=== PATIENT | female | born 1960 | race African-American/Black ===

== ENCOUNTER 2017-03-22 08:53 | Inpatient (IN) | payer BC ==
[~2017-03-22] VITALS: Ht 157.5 cm; Wt 64.5 kg
[~2017-03-22 08:53] MED LIST: ASPIRIN325 MG PO; CRESTOR10 MG PO; GLIPIZIDE10 MG PO; GLUCOPHAGE500 MG; LANTUS INSULIN10 ML SC; LISINOPRIL2.5 MG PO; LOPRESSOR25 MG PO; PLAVIX75 MG PO; PRINIVIL10 MG PO; PROTONIX I40 MG/VIAL IV; PROTONIX40 MG PO
[2017-03-22 09:10] LABS: BASOPHILS 0.1 % (0-2); EOSINOPHILS 0.1 % (0-7); HEMATOCRIT 45.2 % (36.0-48.0); HEMOGLOBIN 14.9 g/dL (12-16); IMMATURE GRANULOCYTES 0.2 % (0-5); LYMPHOCYTES 7.7 % (15-50); MCH 28.2 pg (26.0-34.0); MCV 85.6 fL (80.0-100.0); MEAN PLATELET VOLUME 10.7 fL (7.4-10.4); MONOCYTES 2.6 % (2-11); NEUTROPHILS 89.3 % (40-80); PLATELET COUNT 200 10x3/uL (130-400); RBC 5.28 10x6/uL (4.00-5.40); RDW 13.2 % (11.5-14.5); WBC 12.5 10x3/uL (4.8-10.8)
[2017-03-22 09:20] LABS: APTT 21.3 SECONDS (22.8-39.4); INR 0.95 (0.85-1.17); PROTIME 12.5 SECONDS (11.6-15.0)
[2017-03-22 09:24] LABS: ALBUMIN 3.9 g/dL (3.4-5.0); ANION GAP 18.9 mmol/L (8-16); BILIRUBIN - TOTAL 0.41 mg/dL (0.2-1.3); CALCIUM 9.9 mg/dL (8.5-10.1); CARBON DIOXIDE 21.2 mmol/L (21.0-32.0); CREATININE - SERUM 1.3 mg/dL (0.6-1.3); POTASSIUM - SERUM 4.1 mmol/L (3.5-5.1); PROTEIN - SERUM 8.7 g/dL (6.4-8.2)
[2017-03-22 10:03] LABS: APPEARANCE CLEAR (CLEAR); BACTERIA FEW /hpf (NONE SEEN); BILIRUBIN NEGATIVE (NEGATIVE); COLOR STRAW (YELLOW); EPITHELIAL CELLS 0-5 /hpf (0-5); GLUCOSE 1000 mg/dL (NEGATIVE); KETONE SMALL mg/dL (NEGATIVE); LEUKOCYTE ESTERASE TRACE (NEGATIVE); NITRITE NEGATIVE (NEGATIVE); PROTEIN NEGATIVE (NEGATIVE); RED CELLS - URINE OCC /hpf (0-5); SPECIFIC GRAVITY 1.015 (1.005-1.020); UROBILINOGEN NORMAL (NORMAL); YEAST OCC /hpf (NONE SEEN)
--- NOTE | 2017-03-22 15:55 | NUR ---
PT ORDERED TO HAVE TELE. FLORAL ASSISTANT IS NOT GIVING OUT MONITORS UNLESS DX IS CHEST PAIN, THIS PT DX IS NOT CHEST PAIN. R/T MONITOR STATION BEING BROKEN
[2017-03-22 16:34] VITALS: BP 147/86; BMI 27.5
--- NOTE | 2017-03-22 16:45 | NUR ---
PT ADMITTED TO ROOM VIA STRETCHER FROM ER. PT VERY LETHARGIC, HAS BEEN IN ER SINCE 0800. FAMILY AT BEDSIDE. FSBS TREATED. VS ARE WNL. FLUIDS RUNNING TO R HAND PIV NO PROBLEMS. ORDERED PT DINNER TRAY. SCDS ARE ON AND PATENT. WILL CONT TO MONITOR
--- NOTE | 2017-03-22 17:20 | NUR ---
PT STILL LETHARGIC SLEEPPING FAMILY AT BEDSIDE
--- NOTE | 2017-03-22 17:37 | NUR ---
PT CO LEFT SHOULDER PAIN FROM RECENT FALL. PAGED DR PINEDA FOR MEDICATION.
[2017-03-22] MEDS ORDERED: PLAVIX75 MG PO (18:51)
[2017-03-22] MEDS ORDERED: GLIMEPIRIDE4 MG PO (18:51)
[2017-03-22] MEDS ORDERED: METOPROLOL TART50 MG PO (18:52)
[2017-03-22] MEDS ORDERED: CRESTOR40 MG PO (18:52)
[2017-03-22 20:00] VITALS: BP 154/92
--- NOTE | 2017-03-22 20:55 | NUR ---
HS MEDS GIVEN WITH FRESH ICE WATER. BS 280, COVERED PER S/S. RECLINER CHAIR TAKEN TO ROOM FOR PTS DAUGHTER TO STAY THE NIGHT.
[2017-03-22 23:00] VITALS: BP 139/91
--- NOTE | 2017-03-23 03:22 | NUR ---
UP WITH ASSIST TO BR, GAIT UNSTEADY.
--- NOTE | 2017-03-23 04:04 | NUR ---
RESTING WITH EYES CLOSED, RESPERATIONS EVEN, NO S/S DISTRESS NOTED.
[2017-03-23 05:11] VITALS: BP 122/85
[2017-03-23 06:01] LABS: BASOPHILS 0.2 % (0-2); EOSINOPHILS 0.4 % (0-7); HEMATOCRIT 38.4 % (36.0-48.0); HEMOGLOBIN 12.6 g/dL (12-16); IMMATURE GRANULOCYTES 0.1 % (0-5); MCH 27.8 pg (26.0-34.0); MCHC 32.8 g/dL (31.0-37.0); MCV 84.8 fL (80.0-100.0); MEAN PLATELET VOLUME 10.8 fL (7.4-10.4); MONOCYTES 7.9 % (2-11); NEUTROPHILS 67.4 % (40-80); PLATELET COUNT 201 10x3/uL (130-400); RBC 4.53 10x6/uL (4.00-5.40); RDW 13.7 % (11.5-14.5)
[2017-03-23 06:05] LABS: WBC 9.3 10x3/uL (4.8-10.8)
[2017-03-23 06:29] LABS: ANION GAP 13.1 mmol/L (8-16); CALCIUM 9.1 mg/dL (8.5-10.1); CARBON DIOXIDE 24.4 mmol/L (21.0-32.0); POTASSIUM - SERUM 3.5 mmol/L (3.5-5.1)
--- NOTE | 2017-03-23 06:57 | NUR ---
RECEIVED REPORT FROM [facility] SHIFT NURSE, LLOYD FUENTES. PT IN BED, SLEEPING AT THIS TIME. CALL LIGHT IN REACH, NAD NOTED, WILL CONTINUE TO MONITOR.
--- NOTE | 2017-03-23 07:44 | NUR ---
ADMINISTERED 650MG OF TYLENOL FOR PAIN LEVEL OF 8/10. PT IN BED, DENIES ANY OTHER NEEDS AT THIS TIME. CALL LIGHT IN REACH, NAD NOTED, WILL CONTINUE TO MONITOR.
--- NOTE | 2017-03-23 09:13 | NUR ---
ADMINISTERED MORNING MEDICATIONS, PT IN BED, DENIES ANY NEEDS AT THIS TIME. CALL LIGHT IN REACH, DAUGTHER AT BEDSIDE, NAD NOTED, WILL CONTINUE TO MONITOR.
[2017-03-23 10:48] VITALS: BP 130/87
--- NOTE | 2017-03-23 12:12 | NUR ---
BLOOD SUGAR OF 398, ADMINISTERED 16 UNITS OF HUMULIN PER SLIDING SCALE. PT DENIES ANY OTHER NEEDS AT THIS TIME. CALL LIGHT IN REACH, NAD NOTED, WILL CONTINUE TO MONITOR.
[2017-03-23 13:59] VITALS: BP 136/79
[2017-03-23 16:51] VITALS: BP 142/80
[2017-03-23 18:57] LABS: HEMOGLOBIN A1C 13.7 % (4.8-6.0)
[2017-03-23 19:00] LABS: CHOL - HDL RATIO 5.1 ratio (2.3-4.1); LDL-HDL RATIO 3.6 ratio (1.5-3.5)
[2017-03-23 20:00] VITALS: BP 158/92
--- NOTE | 2017-03-23 20:55 | NUR ---
HS MEDS GIVEN. FSBS 147. PT ALERT/TALKATIVE. ORIENTED TO PPPX 3. IVF NS @ 50 ML/HR INFUSING TO RIGHT HAND. PT HAS PAIN TO LEFT SHOULDER WHERE SHE HIT THE WALL WHEN SHE FELL AT HOME. CALL LIGHT IN REACH. CPOC.
[2017-03-24] VITALS (7 sets, daily range): BP systolic 137–173; BP diastolic 70–99
--- NOTE | 2017-03-24 07:15 | NUR ---
RECEIVED REPORT FROM ADMINISTRATIVE SUPPORT SPECIALIST NURSE, TONIO FUENTES. PT IN BED, DENIES ANY NEEDS AT THIS TIME. CALL LIGHT IN REACH, NAD NOTED, WILL CONTINUE TO MONITOR.
--- NOTE | 2017-03-24 09:17 | NUR ---
ADMINISTERED MORNING MEDICATIONS, PT IN BED, DENIES ANY NEEDS AT THIS TIME. CALL LIGHT IN REACH, NAD NOTED, WILL CONTINUE TO MONITOR.
--- NOTE | 2017-03-24 13:34 | NUR ---
ADMINISTERED 650MG OF TYLENOL FOR PAIN LEVEL OF 6/10. ALSO PROVIDED PT WITH A CUP OF ICE WATER. PT IN BED, DENIES ANY OTHER NEEDS AT THIS TIME. CALL LIGHT IN REACH, FAMILY AT BEDSIDE, NAD NOTED, WILL CONTINUE TO MONITOR.
--- NOTE | 2017-03-24 19:00 | NUR ---
INITIAL ROUNDS MADE. PT SITTING UP IN BED WITH FAMILY IN ROOM. PT DENIES NEEDS OR C/O AT THIS TIME. CALL LIGHT IN REACH. WILL CONT TO MONITOR.
--- NOTE | 2017-03-24 22:54 | NUR ---
RESTING WELL WITH EYES CLOSED, CONT TO MONITOR.
[2017-03-25 03:23] VITALS: BP 153/90
--- NOTE | 2017-03-25 07:51 | NUR ---
0745-AM ROUNDING DOWN WITH NO COMPLAINTS OR NEEDS PER PATIENT. PATIENT STATES THAT SHE IS HOPING TO BE DISCHARGED TODAY. RIGHT HAND SEEN WITH NS INFUSING AT 50 CC/HR. ON ROOM AIR. WILL MONITOR.
[2017-03-25 08:33] VITALS: BP 177/102
[2017-03-25 12:00] VITALS: BP 150/89
--- NOTE | 2017-03-25 14:32 | NUR ---
Nutrition Consult: Consult received for diabetic education. Pt reported that she has had DM for years but needed to be refreshed on diet education. She said that she usually eats 3 meals/day. Pt reported that she does eat a lot of sweets and drinks Pepsi. Reviewed CHO containing food groups with pt. Encouraged pt to eat 3 meals and 3 snacks per day. Encouraged pt to make healthier choices and limit sweets; also to d/c drinking sweetened beverages. Pt displayed good understanding. RD name and number provided to pt. Pt encouraged to contact RD with any questions/concerns. Thank you for the consult. RD will continue to monitor pt progress.
[2017-03-25 14:38] VITALS: Ht 157.5 cm; Wt 64.5 kg
[2017-03-25 16:00] VITALS: BP 157/89
--- NOTE | 2017-03-25 19:45 | NUR ---
RECIEVED SHIFT REPORT. PT IS LYING IN BED. ALERT AND ORIENTED AND ABLE TO VERBALIZE NEEDS. IV IS PATENT AND FLUIDS ARE RUNNING PER ORDER. SCD'S OFF AT THIS TIME. PT IS AMBULATORY BUT WAS INSTRUCTED TO CALL FOR ANY ASSISTANCE NEEDED. PT DENIES ANY PAIN AT THIS TIME. NO NEEDS ARE VERBALIZED AT THIS TIME. WILL CONTINUE TO MONITOR. SIDE RAILS ARE UP X 2. BED IS IN LOWEST POSITION. CALL LIGHT IS WITHIN REACH.
[2017-03-25 20:10] VITALS: BP 163/99
--- NOTE | 2017-03-25 22:01 | NUR ---
SHIFT ASSESSMENT COMPLETED. NIGHT MEDS GIVEN WITH NO PROBLEMS. PT RECIEVED NO INSULIN PER SLIDING SCALE FOR FSBS=87. NO NEEDS ARE VOICED. WILL MONITOR. SIDE RAILS X 2. BED LOW. CALL LIGHT IN REACH.
[2017-03-26 00:05] VITALS: BP 142/88
[2017-03-26 03:37] VITALS: BP 134/83
[2017-03-26 08:08] VITALS: BP 144/82
--- NOTE | 2017-03-26 08:26 | NUR ---
AM ROUNDS - PT APPEARS TO BE SLEEPING ON LEFT SIDE WITH BREATHS EQUAL AND NON LABORED. SCD ARE OFF. NS AT 50CC/HR IN RIGHT HAND. WILL CONTINUE TO MONITOR.
--- NOTE | 2017-03-26 11:12 | NUR ---
Patient Name: CK BECK Admission Status: ER Accout number: [id number] Admission Date: 03-22-2017 : 1960 Admission Diagnosis:TYPE 2 DIABETES MELLITUS WITH HYPOGLYCEMIA WITHOUT COMA Attending: EDILBERTO Current LOS: 4 Anticipated DC Date: 03-26-2017 Planned Disposition: Home Primary Insurance: [employer] [facility] Discharge Planning Comments: * Is the patient Alert and Oriented? Yes 0 * How many steps to enter\exit or inside your home? 4-5 0 * PCP DR. ANIBAL STEVENSON 0 * Pharmacy [facility] 0 * Preadmission Environment Home Alone 0 * ADLs Independent 0 * Equipment Glucometer 0 * Other Equipment NO MEDICAL EQUIPMENT PROVIDER 0 * List name and contact numbers for known caregivers / representatives who currently or will assist patient after discharge: SAVANNAH BARRAGAN, MOTHER, SHU BECK, DTR, 0 * Community resources currently utilized None 0 * Please name any agencies selected above. NONE 0 * Additional services required to return to the preadmission environment? No 0 * Can the patient safely return to the preadmission environment? Yes 0 * Has this patient been hospitalized within the prior 30 days at any hospital? No [address] PINEDA ON 03-25-17, NOTIFIED CM THAT PT IS NOT ABLE TO AFFORD HOME MEDICATIONS. CM CALLED PT'S INTEGRATION PROJECT MANAGER, PHIL HENNY, , DISCUSSED PT'S ISSUES. PT'S FORMULARY DOES NOT COVER LANTUS OR METFORMIN HCL, BUT DOES COVER THREE OTHER INSULINS AND METFORMIN EXTENDED RELEASE AND REGULAR METFORMIN. PT USES [facility]; INSURANCE [facility] AND PT COULD GET A THREE MONTH SUPPLY AT [facility] FOR WHAT PT IS PAYING FOR ONE MONTH AT [facility]. CM MET WITH PT IN ROOM ON 03-26-17, TO DISCUSS DISCHARGE PLANNING AND NEEDS. PT REPORTS LIVING AT HOME INDEPENDENTLY AND ALONE. PT HAS GLUCOMETER AND NO MEDICAL EQUIPMENT PROVIDER PREFERENCE. PT HAS NO OUTSIDE SERVICES ASSISTING IN THE HOME. CM DISCUSSED AVAILABILITY OF HOME HEALTH, REHAB SERVICES AND MEDICAL EQUIPMENT. PT DENIES DISCHARGE NEEDS, REPORTS HER DAUGHTER WILL PICK HER UP FOR DISCHARGE HOME. CM DISCUSSED PT'S HOME MEDICATION ISSUE. PT REPORTS SHE HAS HAD HER HOURS CUT AT [email or web address] TO 25 HOURS; SHE REPORTS BEING EMPLOYED THERE FOR 30 YEARS. PT HAS NOT EXPLORED ANY ASSISTANCE PROGRAMS AND HAS NOT DISCUSSED INABILITY TO AFFORD HER MEDICATIONS WITH HER DOCTOR OR INSURANCE COMPANY TO SEE IF THERE ARE OTHER DRUGS. CM INFORMED OF INSURANCE PROP [employer]ER INFORMATION, PROVIDED LIST OF WHAT SPECIFIC HOME MEDICATIONS ARE AND ARE NOT COVERED SO THAT PT CAN DISCUSS THIS WITH HER PRIMARY DOCTOR. CM PROVIDED INFORMATION TO TWO PRIVATE ASSISTANCE AGENCIES THAT PT CAN APPLY TO FOR MEDICATION ASSISTANCE. CM PROVIDED PT WITH INFORMATION TO [employer] ($10 PER MONTH) AND ENCOURAGED PT TO APPLY IF HER DOCTOR WANTS TO KEEP HER ON LANTUS. CM INFORMED PT SHE COULD BE SAVING MONEY BY TRANSFERRING HER PRESCRIPTIONS TO [facility] OR [employer], PROVIDED PT WITH [facility] $4 MEDICATION LISTING. PT THANKED CM FOR THE INFORMATION, REPORTS SHE IS AWARE THAT SHE NEEDS TO TAKE HER MEDICATIONS DR. STEVENSON HAS BEEN TELLING HER FOR YEARS AND PT HAS BEEN A DIABETIC FOR YEARS AND IS AWARE OF THE DANGERS OF UNCONTROLLED DIABETES. PT REPORTS SHE WILL HAVE HER DAUGHTER WHO HAS INTERNET ACCESS AND ABILITY TO ASSIST WITH APPLICATIONS FOR ASSISTANCE ON PT'S HOME MEDICATIONS. PT DENIES FURTHER DISCHARGE NEEDS. Regional Facilities Specialist: Abdi Meadows
[2017-03-26 11:39] VITALS: BP 124/81
[2017-03-26] MEDS ORDERED: LISINOPRIL10 MG PO (14:09)
[2017-03-26] MEDS ORDERED: CATAPRES0.1 MG PO (14:10)
--- NOTE | 2017-03-26 15:28 | NUR ---
Patient Name: CK BECK Encounter No: [id number] : 1960 Primary Insurance: [employer] [place] P[employer] Anticipated DC Date: 03-26-2017 Planned Disposition: Home DCP follow-up note: CM SPOKE TO PHIL INMAN, PT'S SALES REPRESENTATIVE METALS. PHIL HAS MET WITH PT IN ROOM, PROVIDED RESOURCE INFORMATION TO ENABLE PT TO GET A FREE REPLACEMENT GLUCOMETER WELL FREE TESTING STRIPS WITH THE COMMUNITY CASE MANAGEMENT PROGRAM THROUGH [employer]. PHIL ALSO DISCUSSED WITH PT CHANGING HER PHARMACY TO [employer] INSURANCE BENEFIT WELL PATIENT ASSISTANCE PROGRAMS TO POSSIBLY ASSIST WITH OBTAINING HOME MEDICATION. NO FURTHER DISCHARGE NEEDS IDENTIFIED AT THIS TIME. RUMA SANTORO, CASE MANAGEMENT
[2017-03-26 15:38] VITALS: BP 148/86
--- NOTE | 2017-03-26 18:22 | NUR ---
D/C PT - WRITEN AND VERBAL D/C ORDERS GIVEN TO PT AND DAUGHTER. IV IN RIGHT AC D/C, PT TOLERATED WELL. PT D/C HOME. PT LEFT VIA WHEELCHAIR BY A STAFF MEMBER. WILL D/C
[2017-03-26] MEDS ORDERED: METFORMIN HCL500 M1 PO (18:51)
== END 2017-03-26 18:24 | disposition home or self-care (01) | DRG 639 ==
LOC: D.ER 08:53 → D.M2 15:30
PROVIDERS: Emergency Medicine; ADMIT Family Medicine
DX: E11.649 Type 2 diabetes mellitus with hypoglycemia without coma (principal); Z91.19 Patient's noncompliance with other medical treatment and regimen; I10 Essential (primary) hypertension; M25.512 Pain in left shoulder; W19.XXXA Unspecified fall, initial encounter; I25.10 Atherosclerotic heart disease of native coronary artery without angina pectoris; R51 Headache; E78.5 Hyperlipidemia, unspecified; Z95.5 Presence of coronary angioplasty implant and graft

== ENCOUNTER 2018-08-08 07:21 | Observation (INO) | payer BC ==
[~2018-08-08] VITALS: Ht 157.5 cm; Wt 66.8 kg
[2018-08-08] VITALS (7 sets, daily range): BP systolic 127–137; BP diastolic 73–90; Ht 157.5 cm; Wt 66.8 kg
[~2018-08-08 07:21] MED LIST changes: +CATAPRES0.1 MG PO; +CRESTOR40 MG PO; +GLIMEPIRIDE4 MG PO; +LISINOPRIL10 MG PO; +METFORMIN HCL500 M1 PO; +METOPROLOL TART50 MG PO
[2018-08-08 07:41] LABS: BASOPHILS 0.1 % (0-2); EOSINOPHILS 0.4 % (0-7); HEMATOCRIT 40.4 % (36.0-48.0); HEMOGLOBIN 13.6 g/dL (12-16); IMMATURE GRANULOCYTES 0.2 % (0-5); MCH 28.5 pg (26.0-34.0); MCHC 33.7 g/dL (31.0-37.0); MCV 84.7 fL (80.0-100.0); MEAN PLATELET VOLUME 9.2 fL (7.4-10.4); MONOCYTES 3.2 % (2-11); NEUTROPHILS 87.1 % (40-80); PLATELET COUNT 184 10x3/uL (130-400); RBC 4.77 10x6/uL (4.00-5.40); RDW 13.6 % (11.5-14.5); WBC 9.7 10x3/uL (4.8-10.8)
[2018-08-08 07:58] LABS: APTT 22.6 SECONDS (22.8-39.4); INR 0.92 (0.85-1.17)
[2018-08-08 08:03] LABS: ALBUMIN 3.8 g/dL (3.4-5.0); ALKALINE PHOSPHATASE 108 U/L (46-116); ALT (SGPT) 31 U/L (10-68); BILIRUBIN - TOTAL 0.18 mg/dL (0.2-1.3); CALC OSMOLALITY 297 mosm/kg (275-300); CALCIUM 8.8 mg/dL (8.5-10.1); CARBON DIOXIDE 20.1 mmol/L (21.0-32.0); CHLORIDE - SERUM 104 mmol/L (98-107); CREATININE - SERUM 1.5 mg/dL (0.6-1.3); POTASSIUM - SERUM 4.3 mmol/L (3.5-5.1); PROTEIN - SERUM 7.9 g/dL (6.4-8.2); SODIUM 141 mmol/L (136-145); UREA NITROGEN 24 mg/dL (7-18); eGFR NON AFRICAN AMERICAN 38 mL/min (90-120)
[2018-08-08 08:04] LABS: GLUCOSE 328 mg/dL (74-106)
[2018-08-08 08:06] LABS: MAGNESIUM - SERUM 2.4 mg/dL (1.8-2.4)
[2018-08-08 08:08] LABS: TROPONIN-I < 0.017 ng/mL (0.000-0.060)
[2018-08-08 08:27] LABS: T4 THYROXIN - FREE 0.88 ng/dL (0.76-1.46); THYROID STIMULATING HORMONE 2.28 uIU/mL (0.36-3.74)
[2018-08-08 08:45] LABS: APPEARANCE CLEAR (CLEAR); BILIRUBIN NEGATIVE (NEGATIVE); COLOR YELLOW (YELLOW); GLUCOSE 1000 mg/dL (NEGATIVE); KETONE NEGATIVE (NEGATIVE); NITRITE NEGATIVE (NEGATIVE); PROTEIN TRACE mg/dL (NEGATIVE); RED CELLS - URINE 0-5 /hpf (0-5); SPECIFIC GRAVITY 1.015 (1.005-1.020); UROBILINOGEN NORMAL (NORMAL); WHITE CELLS - URINE NSEEN /hpf (0-5)
[2018-08-08] MEDS ORDERED: GLUCOPHAGE500 MG (10:37)
[2018-08-08] MEDS ORDERED: METOPROLOL TART25 MG PO (10:39)
[2018-08-08] MEDS ORDERED: NORVASC10 MG PO (10:41)
[2018-08-08] MEDS ORDERED: TOPROL XL25 MG PO (10:41)
[2018-08-08 19:57] LABS: CKMB 1.1 U/L (0.0-3.6); CREATINE KINASE 293 UL (21-215); TROPONIN-I < 0.017 ng/mL (0.000-0.060)
[2018-08-09] VITALS: BP 137/81
[2018-08-09 00:02] LABS: CKMB 1.2 U/L (0.0-3.6); CREATINE KINASE 350 UL (21-215)
[2018-08-09 00:13] LABS: TROPONIN-I < 0.017 ng/mL (0.000-0.060)
[2018-08-09 04:00] VITALS: BP 105/76
[2018-08-09 05:44] LABS: BASOPHILS 0.1 % (0-2); EOSINOPHILS 0.9 % (0-7); HEMATOCRIT 36.5 % (36.0-48.0); HEMOGLOBIN 12.1 g/dL (12-16); IMMATURE GRANULOCYTES 0.1 % (0-5); LYMPHOCYTES 30.5 % (15-50); MCH 27.8 pg (26.0-34.0); MCHC 33.2 g/dL (31.0-37.0); MCV 83.9 fL (80.0-100.0); MEAN PLATELET VOLUME 9.1 fL (7.4-10.4); MONOCYTES 8.5 % (2-11); NEUTROPHILS 59.9 % (40-80); PLATELET COUNT 205 10x3/uL (130-400); RBC 4.35 10x6/uL (4.00-5.40); RDW 13.4 % (11.5-14.5); WBC 9.4 10x3/uL (4.8-10.8)
[2018-08-09 06:28] LABS: CALCIUM 8.5 mg/dL (8.5-10.1); CARBON DIOXIDE 24.7 mmol/L (21.0-32.0); CHLORIDE - SERUM 109 mmol/L (98-107); CKMB 0.7 U/L (0.0-3.6); CREATINE KINASE 372 UL (21-215); CREATININE - SERUM 1.3 mg/dL (0.6-1.3); SODIUM 144 mmol/L (136-145); TROPONIN-I < 0.017 ng/mL (0.000-0.060); UREA NITROGEN 19 mg/dL (7-18); eGFR NON AFRICAN AMERICAN 45 mL/min (90-120)
[2018-08-09 06:29] LABS: CALC OSMOLALITY 288 mosm/kg (275-300); GLUCOSE 97 mg/dL (74-106); POTASSIUM - SERUM 3.4 mmol/L (3.5-5.1)
[2018-08-09 09:35] VITALS: BP 114/76
== END 2018-08-09 13:14 | disposition home or self-care (01) ==
LOC: D.ER 07:21 → D.M2 08:55 → OBSVTIME 08:55 → D.M2 08-09 13:14
PROVIDERS: Family Medicine; Internal Medicine Nephrology
DX: R55 Syncope and collapse (principal); I10 Essential (primary) hypertension; R07.9 Chest pain, unspecified; I11.0 Hypertensive heart disease with heart failure; I50.32 Chronic diastolic (congestive) heart failure; E78.5 Hyperlipidemia, unspecified; E11.9 Type 2 diabetes mellitus without complications; K25.9 Gastric ulcer, unspecified as acute or chronic, without hemorrhage or perforation; I25.10 Atherosclerotic heart disease of native coronary artery without angina pectoris; Z95.5 Presence of coronary angioplasty implant and graft; N17.9 Acute kidney failure, unspecified

== ENCOUNTER 2019-07-16 13:31 | Emergency (ER) | payer BC ==
[~2019-07-16] VITALS: Ht 157.5 cm; Wt 64.1 kg
[~2019-07-16 13:31] MED LIST changes: +METOPROLOL TART25 MG PO; +NORVASC10 MG PO; +TOPROL XL25 MG PO
[2019-07-16 13:34] VITALS: Ht 157.5 cm; Wt 64.1 kg
[2019-07-16] MEDS ORDERED: HUMULIN 70100 UNIT/1 SC (13:42)
[2019-07-16 14:13] LABS: BASOPHILS 0.3 % (0-2); EOSINOPHILS 1.6 % (0-7); HEMATOCRIT 42.6 % (36.0-48.0); HEMOGLOBIN 14.8 g/dL (12-16); MCH 28.9 pg (26.0-34.0); MCHC 34.7 g/dL (31.0-37.0); MCV 83.2 fL (80.0-100.0); MEAN PLATELET VOLUME 10.2 fL (7.4-10.4); MONOCYTES 6.4 % (2-11); NEUTROPHILS 56.7 % (40-80); PLATELET COUNT 197 10x3/uL (130-400); RBC 5.12 10x6/uL (4.00-5.40); WBC 6.9 10x3/uL (4.8-10.8)
[2019-07-16 14:25] LABS: ALBUMIN 3.7 g/dL (3.4-5.0); ALKALINE PHOSPHATASE 164 U/L (46-116); ALT (SGPT) 26 U/L (10-68); BILIRUBIN - TOTAL 0.53 mg/dL (0.2-1.3); CALC OSMOLALITY 291 mosm/kg (275-300); CALCIUM 9.7 mg/dL (8.5-10.1); CHLORIDE - SERUM 98 mmol/L (98-107); CREATININE - SERUM 1.1 mg/dL (0.6-1.3); POTASSIUM - SERUM 4.4 mmol/L (3.5-5.1); PROTEIN - SERUM 8.4 g/dL (6.4-8.2); SODIUM 135 mmol/L (136-145); UREA NITROGEN 18 mg/dL (7-18); eGFR NON AFRICAN AMERICAN 54 mL/min (90-120)
[2019-07-16 14:28] LABS: KETONE - SERUM NEGATIVE (NEGATIVE)
[2019-07-16 14:29] LABS: GLUCOSE 461 mg/dL (74-106)
[2019-07-16 16:20] LABS: APPEARANCE CLEAR (CLEAR); BILIRUBIN NEGATIVE (NEGATIVE); COLOR STRAW (YELLOW); GLUCOSE 1000 mg/dL (NEGATIVE); KETONE NEGATIVE (NEGATIVE); NITRITE NEGATIVE (NEGATIVE); PROTEIN NEGATIVE (NEGATIVE); SPECIFIC GRAVITY 1.015 (1.005-1.020); UROBILINOGEN NORMAL (NORMAL)
[2019-07-16 16:21] LABS: EPITHELIAL CELLS 0-5 /hpf (0-5); RED CELLS - URINE 0-5 /hpf (0-5)
[2019-07-16 16:22] LABS: BACTERIA FEW /hpf (NONE SEEN)
[2019-07-16 18:05] VITALS: BP 148/88
== END 2019-07-16 17:48 | disposition home or self-care (01) ==
LOC: D.ER 13:31
PROVIDERS: Family Medicine
DX: E11.65 Type 2 diabetes mellitus with hyperglycemia (principal); Z79.4 Long term (current) use of insulin; Z91.14 Patient's other noncompliance with medication regimen

== ENCOUNTER 2020-07-17 19:55 | Emergency (ER) | payer OTHER ==
[~2020-07-17] VITALS: Ht 157.5 cm; Wt 65.9 kg
[~2020-07-17 19:55] MED LIST changes: +HUMULIN 70100 UNIT/1 SC
[2020-07-17 20:15] VITALS: Ht 157.5 cm; Wt 65.9 kg
[2020-07-17 23:10] LABS: GLUCOSE 1000 mg/dL (NEGATIVE); KETONE NEGATIVE (NEGATIVE); NITRITE NEGATIVE (NEGATIVE)
[2020-07-17 23:11] LABS: BACTERIA FEW /hpf (NEGATIVE); BASOPHILS 0.1 % (0-2); BILIRUBIN NEGATIVE (NEGATIVE); EOSINOPHILS 1.5 % (0-7); EPITHELIAL CELLS 0-5 /hpf (0-5); HEMATOCRIT 43.4 % (36.0-48.0); HEMOGLOBIN 14.4 g/dL (12-16); IMMATURE GRANULOCYTES 0.2 % (0-5); LYMPHOCYTES 29.1 % (15-50); MCH 28.9 pg (26.0-34.0); MCHC 33.2 g/dL (31.0-37.0); MEAN PLATELET VOLUME 9.8 fL (7.4-10.4); MONOCYTES 6.9 % (2-11); NEUTROPHILS 62.2 % (40-80); PLATELET COUNT 218 10x3/uL (130-400); RBC 4.99 10x6/uL (4.00-5.40); RDW 12.7 % (11.5-14.5); RED CELLS - URINE 0-5 /hpf (0-5); UROBILINOGEN NORMAL (NORMAL); WBC 8.2 10x3/uL (4.8-10.8)
[2020-07-17 23:20] LABS: CALCIUM 9.5 mg/dL (8.5-10.1); CARBON DIOXIDE 25.9 mmol/L (21.0-32.0); CREATININE - SERUM 1.2 mg/dL (0.6-1.3); POTASSIUM - SERUM 3.9 mmol/L (3.5-5.1)
[2020-07-17 23:25] LABS: BILIRUBIN - TOTAL 0.67 mg/dL (0.2-1.3); PROTEIN - SERUM 8.3 g/dL (6.4-8.2)
[2020-07-17] MEDS ORDERED: HYDROCODON-ACE1 EAC7 PO (23:41)
[2020-07-17] MEDS ORDERED: AUGMENTIN 875-11 TAB PO (23:41)
[2020-07-18 01:17] VITALS: BP 133/89
== END 2020-07-18 01:17 | disposition home or self-care (01) ==
LOC: D.ER 19:55
PROVIDERS: Family Medicine
DX: S71.152A Open bite, left thigh, initial encounter (principal); W54.0XXA Bitten by dog, initial encounter; Y93.9 Activity, unspecified; Y92.9 Unspecified place or not applicable; E11.9 Type 2 diabetes mellitus without complications; I10 Essential (primary) hypertension; Z79.4 Long term (current) use of insulin

== ENCOUNTER 2021-03-29 14:36 | Inpatient (IN) | payer OTHER ==
[~2021-03-29] VITALS: Ht 165.1 cm; Wt 68.7 kg
[2021-03-29] VITALS (11 sets, daily range): BP systolic 131–166; BP diastolic 79–115; Ht 165.1 cm; Wt 68.7 kg
--- NOTE | ~2021-03-29 | EEG ---
PATIENT:CK BECK MEDICAL RECORD: [id number] DATE OF : [birth year] LOCATION:D.222 D.MS ADMISSION DATE: 03/29/21 REFERRING PHYSICIAN: INTERPRETING PHYSICIAN: JARRED HENDRIX MD DATE OF SERVICE: 03/30/2021 DATE OF EE03/30/2021 ORDERED BY: Dr. Christensen. ROOM NUMBER: 2222. CASE HISTORY: A 61-year-old female admitted after being brought to ER with reported unresponsive episode. Reportedly, the patient had a collapse and unresponsiveness without convulsive activity displayed? There is report of a "blackout" 3 months prior. There is history of chest pain, shortness of breath, and marked hyperglycemia with diabetes, with admission sugar 227. No sedating meds. PROCEDURE: EEG done as a routine bedside portable recording using the standard 10-20 international electrode system. A 16 channel was used with 17th as EKG. Photic stimulation was done as activation procedure. DESCRIPTION: EEG opens with the patient awake with the record displaying a fairly well-organized posterior dominant rhythm of 10-11 Hz. There is brief drowsiness late in the record. Occasional movement artifacts, obscured portions of the record. Infrequent to occasional bilateral independent single theta slow waves were seen, rarely of high voltage and sharp contour as well as infrequent bilateral independent single sharp waves also of high voltage on a rare occasion. With these nonspecific findings more predominant in the right hemisphere. No epileptiform change such as spike, polyspike, or spike and wave was seen. Photic stimulation did not yield a photoparoxysmal response. IMPRESSION: Mildly abnormal EEG with nonspecific changes that might suggest very mild cortical dysfunction, there was a mild predominance in the right hemisphere noted, but without predominance or focality enough to suggest distinctly a focal, structural, or functional abnormality. No evidence of underlying seizure disorder was found in this recording. TRANSINT:[id number] Voice Confirmation ID: [id number] DOCUMENT ID: [id number] JARRED HENDRIX MD CC: [id number] DICTATION DATE: 03/30/21 1030 THERMITE WELDER: 03/30/21 1125 ADM IN [facility] [address] [place] [address]
[~2021-03-29 14:36] MED LIST changes: +ASCORBIC ACID500 MG PO; +AUGMENTIN 875-11 TAB PO; +DULERA 200 MCG8.8 GM INH; +HYDROCODON-ACE1 EAC7 PO; +PEPCID PO; +VITAMIN D-32000 UNI2 PO
[2021-03-29 15:32] LABS: BASOPHILS 0.2 % (0-2); EOSINOPHILS 0 % (0-7); HEMATOCRIT 43.8 % (36.0-48.0); HEMOGLOBIN 14.5 g/dL (12-16); IMMATURE GRANULOCYTES 0.3 % (0-5); LYMPHOCYTE ABS# 0.69 10x3/uL (1.18-3.74); LYMPHOCYTES 6.7 % (15-50); MCH 28.5 pg (26.0-34.0); MCHC 33.1 g/dL (31.0-37.0); MCV 86.2 fL (80.0-100.0); MEAN PLATELET VOLUME 10.3 fL (7.4-10.4); MONOCYTES 5.1 % (2-11); NEUTROPHILS 87.7 % (40-80); RBC 5.08 10x6/uL (4.00-5.40); RDW 12.8 % (11.5-14.5); WBC 10.4 10x3/uL (4.8-10.8)
[2021-03-29 15:34] LABS: PLATELET COUNT 222 10x3/uL (130-400)
[2021-03-29 15:36] LABS: BILIRUBIN NEGATIVE (NEGATIVE); KETONE SMALL mg/dL (NEGATIVE); NITRITE NEGATIVE (NEGATIVE); UROBILINOGEN NORMAL mg/dL (< 2)
[2021-03-29 15:42] LABS: ANION GAP 18.9 mmol/L (8-16); CALCIUM 9.7 mg/dL (8.5-10.1); CARBON DIOXIDE 24.2 mmol/L (21.0-32.0); CREATININE - SERUM 1.3 mg/dL (0.6-1.3); POTASSIUM - SERUM 4.1 mmol/L (3.5-5.1)
[2021-03-29 15:48] LABS: ALBUMIN 3.7 g/dL (3.4-5.0); BILIRUBIN - TOTAL 0.62 mg/dL (0.2-1.3); PROTEIN - SERUM 7.9 g/dL (6.4-8.2)
[2021-03-29 20:02] LABS: APTT 22.9 SECONDS (22.8-39.4); INR 1.09 (0.85-1.17); PROTIME 13.1 SECONDS (11.6-15.0)
[2021-03-29 20:03] LABS: D-DIMER-QUANTITATIVE 0.54 ug/mLFEU (0.20-0.54)
[2021-03-29 20:06] LABS: UDS - AMPHET NEGATIVE QUAL (NEGATIVE); UDS - BARB NEGATIVE QUAL (NEGATIVE); UDS - BENZO NEGATIVE QUAL (NEGATIVE); UDS - COCAINE NEGATIVE QUAL (NEGATIVE); UDS - OPIATE NEGATIVE QUAL (NEGATIVE); UDS - PCP NEGATIVE QUAL (NEGATIVE); UDS - THC NEGATIVE QUAL (NEGATIVE)
[2021-03-29 20:25] LABS: CKMB 0.9 U/L (0.0-3.6); CREATINE KINASE 237 UL (21-215); MAGNESIUM - SERUM 2.4 mg/dL (1.8-2.4)
[2021-03-29 20:26] LABS: TROPONIN-I < 0.017 ng/mL (0.000-0.060)
[2021-03-30 01:53] LABS: CKMB 0.7 U/L (0.0-3.6); CREATINE KINASE 259 UL (21-215); TROPONIN-I < 0.017 ng/mL (0.000-0.060)
--- NOTE | 2021-03-30 03:31 | NUR ---
PATIENT CAME FROM ED IN WHEELCHAIR, SHE IS CONFUSED AT TIMES, DENISE BED ALARM IN PLACE, SHE IS CURRENTLY RESTING IN BED WITH HER EYES CLOSED.
[2021-03-30 04:00] VITALS: BP 119/77
[2021-03-30 09:19] VITALS: BP 123/78
[2021-03-30 10:42] LABS: BASOPHILS 0.2 % (0-2); EOSINOPHILS 0.9 % (0-7); HEMATOCRIT 40.6 % (36.0-48.0); HEMOGLOBIN 13.6 g/dL (12-16); IMMATURE GRANULOCYTES 0.2 % (0-5); LYMPHOCYTE ABS# 2.11 10x3/uL (1.18-3.74); MCHC 33.5 g/dL (31.0-37.0); MCV 86.6 fL (80.0-100.0); MEAN PLATELET VOLUME 9.9 fL (7.4-10.4); MONOCYTES 7.3 % (2-11); NEUTROPHIL ABS# 3.92 10x3/uL (1.56-6.13); NEUTROPHILS 59.4 % (40-80); PLATELET COUNT 184 10x3/uL (130-400); RBC 4.69 10x6/uL (4.00-5.40); RDW 12.9 % (11.5-14.5)
[2021-03-30 10:45] LABS: WBC 6.6 10x3/uL (4.8-10.8)
[2021-03-30 11:11] LABS: ALBUMIN 3.2 g/dL (3.4-5.0); ALKALINE PHOSPHATASE 96 U/L (30-120); ALT (SGPT) 27 U/L (10-68); BILIRUBIN - TOTAL 0.98 mg/dL (0.2-1.3); CALCIUM 8.5 mg/dL (8.5-10.1); CARBON DIOXIDE 26.8 mmol/L (21.0-32.0); CHLORIDE - SERUM 109 mmol/L (98-107); CKMB 0.7 U/L (0.0-3.6); CREATINE KINASE 233 UL (21-215); MAGNESIUM - SERUM 2.1 mg/dL (1.8-2.4); POTASSIUM - SERUM 3.6 mmol/L (3.5-5.1); PROTEIN - SERUM 6.7 g/dL (6.4-8.2); SODIUM 145 mmol/L (136-145); UREA NITROGEN 12 mg/dL (7-18); eGFR NON AFRICAN AMERICAN 60 mL/min (90-120)
[2021-03-30 11:12] LABS: CALC OSMOLALITY 293 mosm/kg (275-300); GLUCOSE 193 mg/dL (74-106); TROPONIN-I < 0.017 ng/mL (0.000-0.060)
[2021-03-30 12:50] VITALS: BP 155/71
--- NOTE | 2021-03-30 15:33 | NUR ---
I have reviewed this patient and I concur with the Shift Assessment completed by the Licensed Practical Nurse today this shift.
--- NOTE | 2021-03-30 18:51 | NUR ---
DC TOY VOICE UNDERSTANDING OF DC ORDERS. IV DC. STABLE UPON DEPARTURE.
== END 2021-03-30 18:52 | disposition home or self-care (01) | DRG 101 ==
LOC: D.ER 14:36 → D.MS 21:53
PROVIDERS: Emergency Medicine; ADMIT Family Medicine; ATTEND Family Medicine
DX: R56.9 Unspecified convulsions (principal); G93.40 Encephalopathy, unspecified; E11.65 Type 2 diabetes mellitus with hyperglycemia; I10 Essential (primary) hypertension; I25.10 Atherosclerotic heart disease of native coronary artery without angina pectoris; M19.90 Unspecified osteoarthritis, unspecified site